=== PATIENT | female | born 2000 | race Caucasian/White ===

== ENCOUNTER 2019-02-02 16:56 | Inpatient (IN) ==
[2019-02-02] MEDS ORDERED: HUMULIN R IV ONE (17:52)
[2019-02-02] MEDS ORDERED: NS 1,000 ML IV ONE ×2 (17:52→19:46)
[2019-02-02 18:43] LABS: BILIRUBIN URINE NEGATIVE (NEGATIVE); BLOOD URINE LARGE (NEGATIVE); COLOR STRAW; GLUCOSE URINE >1000 mg/dL (NEGATIVE); KETONE URINE >150 mg/dL (NEGATIVE); LEUKOCYTES URINE NEGATIVE (NEGATIVE); NITRITE URINE NEGATIVE (NEGATIVE); PH URINE 5.5; PROTEIN URINE NEGATIVE (NEGATIVE); SP GRAVITY URINE 1.028; TURBIDITY URINE CLEAR (CLEAR); URINE SOURCE CLEAN CATCH; UROBILINOGEN URINE NORMAL (NORMAL)
[2019-02-02 18:44] LABS: BASO# 0.03 X1000 (0.0-0.2); BASO% 0.3 % (0.0-0.8); EOS# 0.03 X1000 (0.0-0.7); EOS% 0.3 % (0.0-10.0); HEMATOCRIT 47.8 % (37.0-47.0); HEMOGLOBIN 16.1 g/dL (12.0-16.0); IMM GRAN# 0.05 X1000 (0.0-0.04); IMM GRAN% 0.5 % (0.0-0.5); LYMPH# 1.26 X1000 (1.2-3.4); LYMPH% 11.8 % (20.5-51.1); MCH 30.1 PG (27-31); MCHC 33.7 g/dL (33-37); MCV 89.5 FL (81-99); MONO# 0.53 X1000 (0.11-0.59); NEUT# 8.79 X1000 (1.4-6.5); NEUT% 82.1 % (42.2-75.2); PLT 495 X1000 (130-400); RBC 5.34 XMIL (4.2-5.4); RDW 13.5 % (11.5-14.5); WBC 10.69 X1000 (4.8-10.8)
[2019-02-02 18:45] LABS: UR EPITHELIAL CELLS <10 /HPF (<10); URINE BACTERIA NEGATIVE /HPF; URINE RBC <10 /HPF (<10); URINE WBC <10 /HPF (<10)
--- NOTE | 2019-02-02 18:54 | PROVIDER DOCUMENTATION ---
This chart was entered by Breana Swain Scribe, acting as scribe for Talon Malave MD. HPI-General Adult - General Source: patient - History of Present Illness -Gen Adult Nature of Presenting Problems: Patient is a 18 year old female who presents with elevated blood sugar. Reports nausea and chest pain. History of diabetes. Denies vomiting. Location of Pain/Injury: reports: chest Pain Radiation: reports: no radiation Quality of Pain: reports: aching Severity: reports: mild Onset/Duration: reports: unsure Timing: reports: still present Context/Activities at Onset: reports: light activity Associated Symptoms: reports: nausea Similar Symptoms Previously?: Yes Recently seen or treated by another doctor?: Yes <Talon Malave - Last Filed: 02/02/19 18:54> <Cj Gillette - Last Filed: 02/02/19 21:50> - General Chief Complaint: High Blood Sugar Stated Complaint: BLOOD SUGAR HIGH Time Seen by Provider: 02/02/19 17:45 Allergies/Adverse Reactions: Patient Allergies Allergy/AdvReac Type Severity Reaction Status Date / Time No Known Allergies Allergy Verified 07/01/14 08:31 Home Medications: Home Medication List Medication Instructions Recorded Confirmed Last Taken Type Ondansetron HCl [Zofran] 4 mg PO Q6H 07/01/14 07/01/14 07/01/14 History Promethazine [Phenergan] 25 mg PO Q6H PRN PRN 07/01/14 07/01/14 07/01/14 History Review of Systems - Adult - REVIEW OF SYSTEMS - ADULT Constitutional: reports: no symptoms reported. denies: chills, fever, fatique Eyes: reports: no symptoms reported Ears, Nose, Mouth & Throat: reports: no symptoms reported Cardiovascular: reports: see HPI, chest pain. denies: irregular heart rate, palpitations Respiratory: reports: no symptoms reported Gastrointestinal: reports: see HPI, nausea. denies: abdominal pain, vomiting Genitourinary: reports: no symptoms reported Musculoskeletal: reports: no symptoms reported Integumentary: reports: no symptoms reported Neurological: reports: no symptoms reported Psychiatric: reports: no symptoms reported Endocrine: reports: no symptoms reported Hematologic/Lymphatic: reports: no symptoms reported Allergic/Immunologic: reports: no symptoms reported All Other Systems: Reviewed and Negative <Talon Malave - Last Filed: 02/02/19 18:54> Past History - Adult - PAST MEDICAL HISTORY-ADULT Review of Records: reports: Old Records Reviewed, Social history reviewed & non- contributory. Major Childhood Illnesses: reports: denies history Cardiovascular: reports: denies history Respiratory: reports: denies history Gastrointestinal: reports: denies history Obstetrical/Gynecological: reports: denies history Genitourinary: reports: denies history Musculoskeletal: reports: denies history Neurological: reports: denies history Endocrine/Immune: reports: Diabetes Other Conditions: reports: denies history - PRIOR SURGERIES/PROCEDURES Surgical/Procedure History: reports: none - PRIOR HOSPITALIZATIONS Prior Hospitalizations: reports: none - IMMUNIZATION STATUS Childhood Immunizations: UTD, See Nurse Assessment Flu Vaccine: See Nurse Assessment - FAMILY HISTORY Family History: diabetes - SOCIAL HISTORY Smoking: denies Substance Use: denies Living Situation: family <Talon Malave - Last Filed: 02/02/19 18:54> Physical Exam-General - PHYSICAL EXAM-ADULT Initial Vital Signs Reviewed: Yes - CONSTITUTIONAL General Appearance: alert, no apparent distress. negative: lethargic - HEAD, EARS, NOSE, MOUTH & THROAT HENMT: normocephalic/atraumatic, moist mucous membranes. negative: angioedema - RESPIRATORY Respiratory: chest non-tender, lungs clear, normal breath sounds. negative: crackles, wheezing - CARDIOVASCULAR Cardiovascular: normal peripheral pulses, regular rate, rhythm. negative: tachycardia - GASTROINTESTINAL (ABDOMEN) Abdominal Exam: normal bowel sounds, non tender, soft. negative: rebound - MUSCULOSKELETAL Extremity: non-tender, normal inspection. negative: deformity, erythema - SKIN Integumentary: normal color, normal turgor, warm/dry. negative: cyanosis, ecchymosis, jaundice - NEUROLOGIC Neurologic: grossly normal. negative: aphasia, facial droop - PSYCHIATRIC Psych/Mental Status: normal mood/affect, oriented x 3. negative: anxious <Talon Malave - Last Filed: 02/02/19 18:54> Progress - PLAN OF CARE/RESULTS Progress/Plan/Lab Results: Vital Signs - 8 hr 02/02/19 17:34 Temperature 98.8 F Pulse Rate 114 H Respiratory Rate 18 Blood Pressure 105/75 O2 Sat by Pulse Oximetry 98 <Talon Malave - Last Filed: 02/02/19 18:54> - PLAN OF CARE/RESULTS Progress/Plan/Lab Results: Vital Signs - 8 hr 02/02/19 17:34 02/02/19 17:43 02/02/19 17:45 Temperature 98.8 F Pulse Rate 114 H 108 H 109 H Respiratory Rate 18 24 22 Blood Pressure 105/75 158/137 O2 Sat by Pulse Oximetry 98 100 99 02/02/19 18:00 02/02/19 18:15 02/02/19 18:26 Temperature Pulse Rate 104 H 101 H 104 H Respiratory Rate 21 22 19 Blood Pressure 94/73 O2 Sat by Pulse Oximetry 100 100 100 02/02/19 18:30 02/02/19 18:45 02/02/19 19:00 Temperature Pulse Rate 117 H 107 H 132 H Respiratory Rate 27 H 24 29 H Blood Pressure O2 Sat by Pulse Oximetry 99 98 100 02/02/19 19:01 02/02/19 19:15 02/02/19 19:30 Temperature Pulse Rate 133 H 117 H 121 H Respiratory Rate 21 23 16 Blood Pressure 117/74 O2 Sat by Pulse Oximetry 100 99 99 02/02/19 19:45 02/02/19 20:00 02/02/19 20:01 Temperature Pulse Rate 111 H 111 H 105 H Respiratory Rate 18 24 23 Blood Pressure 115/76 O2 Sat by Pulse Oximetry 99 99 100 02/02/19 20:15 02/02/19 20:30 02/02/19 20:53 Temperature Pulse Rate 109 H 115 H 115 H Respiratory Rate 24 23 23 Blood Pressure 130/79 O2 Sat by Pulse Oximetry 100 100 99 02/02/19 21:00 02/02/19 21:01 Temperature Pulse Rate 113 H 108 H Respiratory Rate 29 H 22 Blood Pressure 111/84 O2 Sat by Pulse Oximetry 99 100 Laboratory Results - last 24 hr 02/02/19 02/02/19 02/02/19 18:03 18:03 18:18 WBC 10.69 RBC 5.34 Hgb 16.1 H Hct 47.8 H MCV 89.5 MCH 30.1 MCHC 33.7 RDW Std Deviation 13.5 Plt Count 495 H MPV 10.0 Immature Gran % (Auto) 0.5 Neut % (Auto) 82.1 H Lymph % (Auto) 11.8 L Vernon % (Auto) 5.0 Eos % (Auto) 0.3 Baso % (Auto) 0.3 Immature Gran # (Auto) 0.05 H Neut # (Auto) 8.79 H Lymph # (Auto) 1.26 Vernon # (Auto) 0.53 Eos # (Auto) 0.03 Baso # (Auto) 0.03 Specimen Type Sample Site pH pCO2 pO2 HCO3 Base Excess Oxyhemoglobin ABG O2 Sat (Calculated) ABG O2 Saturation ABG Carboxyhemoglobin ABG Methemoglobin Stef Test A-a O2 Difference Total Hemoglobin Lactate Blood Gas Modality FiO2 % Sodium 132 L Potassium 5.1 Chloride 87 L Carbon Dioxide 10 L Anion Gap 35 BUN 17 Creatinine 0.9 Estimated GFR/1.73 m2 > 60 BUN/Creatinine Ratio 19 Glucose 562 H* POC Glucose Calculated Osmolality 292 Calcium 9.3 Total Bilirubin 0.43 AST 20 ALT 19 Alkaline Phosphatase 135 H Total Protein 9.3 H Albumin 5.6 H Globulin 3.7 Albumin/Globulin Ratio 1.5 Urine Source CLEAN CATCH Urine Color STRAW Urine Turbidity CLEAR Urine pH 5.5 Ur Specific [place] 1.028 Urine Protein NEGATIVE Ur Glucose (Stick) >1000 A Ur Ketones (Stick) >150 Urine Blood LARGE A Urine Nitrite NEGATIVE Urine Bilirubin NEGATIVE Urobilinogen Dipstick NORMAL Urine Leukocytes NEGATIVE Urine WBC (Auto) <10 Urine RBC (Auto) <10 U Epithel Cells (Auto) <10 Urine Bacteria (Auto) NEGATIVE 02/02/19 02/02/19 19:01 21:30 WBC RBC Hgb Hct MCV MCH MCHC RDW Std Deviation Plt Count MPV Immature Gran % (Auto) Neut % (Auto) Lymph % (Auto) Vernon % (Auto) Eos % (Auto) Baso % (Auto) Immature Gran # (Auto) Neut # (Auto) Lymph # (Auto) Vernon # (Auto) Eos # (Auto) Baso # (Auto) Specimen Type ARTERIAL Sample Site R RADIAL pH 7.28 L pCO2 21 L pO2 116 H HCO3 13.4 L Base Excess -14.8 L Oxyhemoglobin 96.6 ABG O2 Sat (Calculated) 17.6 ABG O2 Saturation 99.5 ABG Carboxyhemoglobin 1.70 ABG Methemoglobin 1.2 Stef Test YES A-a O2 Difference 7.0 Total Hemoglobin 12.8 Lactate 1.00 Blood Gas Modality ROOM AIR FiO2 % 21.0 Sodium Potassium Chloride Carbon Dioxide Anion Gap BUN Creatinine Estimated GFR/1.73 m2 BUN/Creatinine Ratio Glucose POC Glucose 500 H Calculated Osmolality Calcium Total Bilirubin AST ALT Alkaline Phosphatase Total Protein Albumin Globulin Albumin/Globulin Ratio Urine Source Urine Color Urine Turbidity Urine pH Ur Specific [place] Urine Protein Ur Glucose (Stick) Ur Ketones (Stick) Urine Blood Urine Nitrite Urine Bilirubin Urobilinogen Dipstick Urine Leukocytes Urine WBC (Auto) Urine RBC (Auto) U Epithel Cells (Auto) Urine Bacteria (Auto) Orders Category Date Time Status ABG [RESP] Routine Lab 02/02/19 21:30 Completed ACETONE SERUM [CHEM] Stat Lab 02/02/19 21:15 Uncollected CBC WITH ELECTRONIC DIFF [HEME] Stat Lab 02/02/19 18:03 Completed CK PROFILE [SP CHEM] Stat Lab 02/02/19 21:15 Uncollected CK TOTAL [CHEM] Stat Lab 02/02/19 21:15 Uncollected CMP [COMPREHENSIVE METABOLIC PANEL] [CHEM] Stat Lab 02/02/19 18:18 Completed HCG [ TEST-SERUM] [PREG] Stat Lab 02/02/19 18:03 Received LACTATE, PLASMA [CHEM] Stat Lab 02/02/19 21:15 Uncollected MAGNESIUM [CHEM] Stat Lab 02/02/19 21:15 Uncollected PHOSPHORUS [CHEM] Stat Lab 02/02/19 21:15 Uncollected TROPONIN T Stat Lab 02/02/19 21:15 Uncollected URINALYSIS W/POSS RFLX CULT [URINALYSIS] Stat Lab 02/02/19 18:03 Completed URINE DRUG SCREEN Stat Lab 02/02/19 21:15 Uncollected 0.9% Sodium Chloride Inj [Ns] 1,000 ml Med 02/02/19 17:52 Discontinued IV 999 mls/hr 0.9% Sodium Chloride Inj [Ns] 1,000 ml Med 02/02/19 19:46 Discontinued IV 999 mls/hr 0.9% Sodium Chloride Inj [Ns] 100 ml Med 02/02/19 21:45 Active Insulin Human Regular [Humulin R] 100 unit IV Per Protocol mls/hr Insulin Human Regular [Humulin R] Med 02/02/19 19:46 Discontinued 10 unit SUBQ NOW ONE Insulin Human Regular [Humulin R] Med 02/02/19 17:52 Discontinued 20 unit IV NOW ONE Magnesium Sulfate 2 gm/S.w.i. Med 02/02/19 21:45 Active 2 gm in 50 ml IV PRN Potassium Chloride 10% Liquid Med 02/02/19 21:45 Active 20 meq PO PRN PRN Potassium Chloride 20 Meq/Swi Med 02/02/19 21:45 Active 20 meq in 100 ml IV PRN Potassium Chloride 20% Liquid Med 02/02/19 21:45 Active 40 meq PO PRN PRN Potassium Chloride 40 Meq/Swi Med 02/02/19 21:45 Active 40 meq in 100 ml IV PRN Sodium Bicarbonate 8.4% 100 meq Med 02/02/19 21:45 Active Water, Sterile Inj [Sterile Water Inj] 500 ml IV PRN Sodium Phosphate 30 mmol Med 02/02/19 21:45 Active Dextrose 5%-Water Inj [D5w] 250 ml IV PRN Pt signed out to me by Dr. Malave, pt found to be in DKA, insulin drip started, spoke with Dr. Jackson and will admit Result Diagrams: 02/02/19 18:03 02/02/19 18:18 <Cj Gillette - Last Filed: 02/02/19 21:50> Departure <Talon Malave - Last Filed: 02/02/19 18:54> - Departure Date of Disposition Decision: 02/02/19 Time of Disposition Decision: 21:49 Certified Medical Emergency: Emergent - Critical Care Note This patient required my direct & personal management of CC.: Yes Total Time (mins): 36 Critical Care Statement: This patient required my direct personal management to treat or rule out processes, the absence of which, could potentiallly result in sudden, clinically significant life or limb threatening deterioration. <Cj Gillette - Last Filed: 02/02/19 21:50> - Departure DIAGNOSIS: DKA (diabetic ketoacidoses) Qualifiers: Diabetes mellitus type: due to underlying condition Diabetes mellitus com plication detail: without coma Qualified Code(s): E08.10 - Diabetes mellitus due to underlying condition with ketoacidosis without coma Disposition: ADMITTED INPATIENT 09 Condition: Stable Referrals and Follow-Ups: None,PCP [Primary Care Provider] - Attestation - Physician/ [place] Attestation The physician spent face to face time with patient:: Yes Advanced Practice Provider documentation review:: Supervising physician onsite and consulted in the evaluation and care of this patient. The physician did have a face to face encounter with the patient. <Talon Malave - Last Filed: 02/02/19 18:54> - Physician/ [place] Attestation The physician spent face to face time with patient:: Yes Advanced Practice Provider documentation review:: Supervising physician onsite and consulted in the evaluation and care of this patient. The physician did have a face to face encounter with the patient. <Cj Gillette - Last Filed: 02/02/19 21:50> This chart was documented by the indicated scribe, (Breana Swain Scribe) and accurately reflects the services I performed and decisions made by me, Talon Malave MD, as attested by the provider's signature.
[2019-02-02 19:45] LABS: AGAP 35; ALB/GLOB RATIO 1.5; ALBUMIN 5.6 g/dL (3.5-5.0); ALKALINE PHOSPHATASE 135 U/L (32-104); BUN 17 mg/dL (8-22); CALCIUM 9.3 mg/dL (8.8-10.2); CHLORIDE 87 mmol/L (98-107); COSMO 292; CREATININE 0.9 mg/dL (0.5-0.9); ESTIMATED GFR > 60; GLUCOSE 562 mg/dL (70-104); GOT 20 U/L (10-30); GPT 19 U/L (10-36); POTASSIUM 5.1 mmol/L (3.5-5.1); SODIUM 132 mmol/L (136-145); TCO2 10 mmol/L (25-35); TOTAL BILIRUBIN 0.43 mg/dL (0.20-1.00); TOTAL PROTEIN 9.3 g/dL (6.3-8.3)
[2019-02-02] MEDS ORDERED: HUMULIN R SUBQ ONE (19:46)
[2019-02-02 21:40] LABS: ALLEN TEST YES; BE -14.8 mmoll (-3.0-3.0); BLOOD TYPE ARTERIAL; HCO3-(ACT) 13.4 mmoll (20.0-26.0); METHB 1.2 % (0.0-1.5); O2(CT) 17.6 mL/dL (15.0-23.0); O2HB 96.6 % (95.0-99.0); PCO2(98.6) 21 mmHg (35-45); PO2(98.6) 116 mmHg (60-100); SAMPLE BLOOD; SAO2 99.5 % (95.0-100.0); THB 12.8 g/dL (11.5-17.4); pH(98.6) 7.28 (7.35-7.45)
[2019-02-02 21:41] LABS: MODALITY ROOM AIR
[2019-02-02] MEDS ORDERED: SODIUM PHOSPHATE 30 MMOL in D5W 250 ML IV PRN (21:45)
[2019-02-02] MEDS ORDERED: POTASSIUM CHLORIDE 40 MEQ/SWI 40 MEQ/100 ML IVPB IV PRN (21:45)
[2019-02-02] MEDS ORDERED: SODIUM BICARBONATE 8.4% 100 MEQ in STERILE WATER INJ. 500 ML IV PRN (21:45)
[2019-02-02] MEDS ORDERED: POTASSIUM CHLORIDE 20% LIQUID PO PRN (21:45)
[2019-02-02] MEDS ORDERED: MAGNESIUM SULFATE 2 GM/S.W.I. 2 GM/50 ML IVPB IV PRN (21:45)
[2019-02-02] MEDS ORDERED: POTASSIUM CHLORIDE 20 MEQ/SWI 20 MEQ/100 ML IVPB IV PRN (21:45)
[2019-02-02] MEDS ORDERED: HUMULIN R 100 UNIT in NS 100 ML IV SCH (21:45)
[2019-02-02] MEDS ORDERED: D50W SYRINGE IV PRN (22:00)
[2019-02-02 22:58] LABS: UR AMPHETAMINES QUAL NONE DETECTED (NONE DETECT); UR BARBITUATES QUAL NONE DETECTED (NONE DETECT); UR BENZODIAZEPIN QUAL NONE DETECTED (NONE DETECT); UR CANNABINOIDS QUAL NONE DETECTED (NONE DETECT); UR COCAINE QUAL NONE DETECTED (NONE DETECT); UR METHADONE QUAL NONE DETECTED (NONE DETECT); UR OPIATES QUAL NONE DETECTED (NONE DETECT); UR OXYCODONE QUAL NONE DETECTED (NONE DETECT); UR PCP QUAL NONE DETECTED (NONE DETECT)
[2019-02-02 22:59] LABS: ACETONE SERUM MODERATE (NEGATIVE)
[2019-02-02 23:03] LABS: PHOSPHORUS 2.2 mg/dL (2.7-4.5)
[2019-02-02 23:05] LABS: CK PROFILE 44 U/L (24-173)
--- NOTE | 2019-02-03 00:01 | HISTORY AND PHYSICAL ---
REASON FOR ADMISSION: Weakness, polyuria, polydipsia of 1 day's duration. Ms. Tisha Bates is a 18-year-old woman with past medical history of type 1 diabetes who according to ER physician reports that she presented to the ER different places 3 times in the last 1 month. Patient reports that she was doing well up until early hours of this morning when she started complaining of feeling sick and weak. Denies any vomiting at that time but did vomit on arrival to the ER recently improved. No diarrhea, no abdominal pain. She then complains of vague chest pain with some slight shortness of breath. This has since resolved . She also complains of polyuria, polydipsia over the last 8 hours and feeling little lightheaded and weak. No bleeding from any orifice. No change in her medications although her fiance says that she does not check her blood sugar, for the last 2 weeks she has been engaging in dietary indiscretion. Reason why the patient also came in because she could not get her blood sugar to register anything other than high and this concerned her. REVIEW OF SYSTEMS: Patient reports leg swelling fiance also adds that she is having some mild facial swelling in the morning when she wakes up. Patient denies any change in her urinary habits. Otherwise 12 system review was done. Positive findings per HPI. ALLERGIES: No known allergies. HOME MEDICATIONS: Lantus and Humalog. FAMILY HISTORY: Father of colon cancer in his 30s and her grandmother also had colon cancer. SOCIAL HISTORY: Does not smoke, drink or use drugs. SURGICAL HISTORY: D and C. LABORATORY WORK: White count 10,000, hemoglobin and hematocrit 16 and 47, platelets 495,000, 82% neutrophils. Sodium is 132, BUN 17, creatinine 0.9, glucose 562, alkaline phosphatase 135, total protein is 95, albumin 5.6. negative, urinalysis greater than 1000 glucose, ketones greater 150, blood large, protein is negative, pH 7.28, pCO2 21, PO2 116, anion gap as above was 35, bicarb is 13, blood gas is done on room air. EXAMINATION: Slender young woman who is not in acute distress, A, O x3. Normal mood and affect. Head is normocephalic, atraumatic. Eyes, JAKOB, EOMI. She is anicteric not pale. ENT and oropharynx exam shows oral thrush line her cheek . No erythema or exudates no cyanosis.Neck: Supple. No JVD or carotid bruit, thyromegaly. No cervical lymph nodes. Chest: Clear on auscultated range both lung perez. Cardiovascular: first, second heart sounds heard. No gallops, murmurs or rubs. Rhythm is regular. Abdomen: Scaphoid, soft, nontender, no megaly, bowel sounds are normal. Rectal: Deferred at this time. Extremities: No edema, clubbing, peripheral cyanosis, good distal pulse volumes palpated regular symmetrical. Neurological: No focal deficits. Skin: Intact, good turgor. Musculoskeletal: Grossly normal. ASSESSMENT: 1. Diabetic ketoacidosis . 2. Dehydration. Patient admits to be poorly compliant with her medication and desires to be educated especially aspect of the correction factor patient says she is not counseled, she knows how to count her carbs but does not quite get the hang for correction factor is. For now once she get out of DKA will get welding equipment sales representative to see her and teach her how to count her carb and correction factor and slowly reintroduce home medications slight modifications. A1c was ordered. Her last A1c according to the patient was 9.2 few months ago. We see how this compares her most recent A1c. Patient is motivated about her poor compliance wants do better. The patient be transferred to [facility]. cc: Pool Jackson MD MTDXiao
[2019-02-03] MEDS ORDERED: ZOFRAN IV PRN (01:03)
[2019-02-03] MEDS ORDERED: D5 1/2 NS + KCL 10 MEQ 1,000 ML IV PRN ×2 (01:03→01:30)
[2019-02-03] MEDS ORDERED: TYLENOL PO PRN (01:03)
[2019-02-03] MEDS ORDERED: POTASSIUM CHLORIDE 10 MEQ in NS 1,000 ML IV SCH ×2 (01:03→01:30)
[2019-02-03 01:49] LABS: HEMOGLOBIN A1C 11.2 % (4.8-6.0)
[2019-02-03 02:07] LABS: AGAP 19; BUN 11 mg/dL (8-22); CHLORIDE 104 mmol/L (98-107); COSMO 277; CREATININE 0.6 mg/dL (0.5-0.9); ESTIMATED GFR > 60; GLUCOSE 170 mg/dL (70-104); LIPASE 36 U/L (13-60); MAGNESIUM 1.8 mg/dL (1.5-2.7); PHOSPHORUS 2.6 mg/dL (2.7-4.5); POTASSIUM 3.9 mmol/L (3.5-5.1); SODIUM 137 mmol/L (136-145); TCO2 14 mmol/L (25-35)
[2019-02-03] MEDS: D5 1/2 NS + KCL 10 MEQ 1,000 ML IV SCH ×2 (02:30→09:15)
[2019-02-03] MEDS: POTASSIUM CHLORIDE 10% LIQUID PO PRN ×2 (03:04→07:36)
[2019-02-03 05:29] LABS: AGAP 15; BUN 10 mg/dL (8-22); CALCIUM 7.8 mg/dL (8.8-10.2); CHLORIDE 108 mmol/L (98-107); COSMO 282; CREATININE 0.5 mg/dL (0.5-0.9); ESTIMATED GFR > 60; GLUCOSE 202 mg/dL (70-104); MAGNESIUM 1.8 mg/dL (1.5-2.7); PHOSPHORUS 2.9 mg/dL (2.7-4.5); SODIUM 139 mmol/L (136-145); TCO2 16 mmol/L (25-35)
--- NOTE | 2019-02-03 07:37 | Diag Imaging Result Doc PS360 ---
EXAM: CHEST-2 VIEWS 02/02/2019 HISTORY: cp TECHNIQUE: PA and lateral chest COMMENT: There is ill-defined opacity in the right lower lobe. There are no previous studies available for comparison. The heart size and pulmonary vascularity are within normal limits. IMPRESSION: Right lower lobe bronchopneumonia. Electronically signed by Pietro Riggs 02/03/2019 7:35 AM
[2019-02-03] MEDS: MYCOSTATIN SUSP PO SCH ×4 (09:35→20:52)
[2019-02-03] MEDS: MAXIPIME 1 GM in NS 50 ML IV SCH ×2 (09:36→20:54)
[2019-02-03 10:04] LABS: BASO# 0.05 X1000 (0.0-0.2); BASO% 0.9 % (0.0-0.8); EOS# 0.15 X1000 (0.0-0.7); EOS% 2.6 % (0.0-10.0); HEMATOCRIT 38.5 % (37.0-47.0); HEMOGLOBIN 13.1 g/dL (12.0-16.0); IMM GRAN# 0.02 X1000 (0.0-0.04); IMM GRAN% 0.3 % (0.0-0.5); LYMPH# 1.83 X1000 (1.2-3.4); LYMPH% 31.6 % (20.5-51.1); MCH 30.5 PG (27-31); MCV 89.5 FL (81-99); MONO# 0.53 X1000 (0.11-0.59); MONO% 9.2 % (1.7-9.3); MPV 9.4 FL (7.4-10.4); NEUT# 3.21 X1000 (1.4-6.5); NEUT% 55.4 % (42.2-75.2); PLT 359 X1000 (130-400); RDW 13.5 % (11.5-14.5); WBC 5.79 X1000 (4.8-10.8)
[2019-02-03 10:15] LABS: URINE SOURCE CLEAN CATCH
[2019-02-03 10:34] LABS: UR EPITHELIAL CELLS <10 /HPF (<10); URINE BACTERIA NEGATIVE /HPF; URINE RBC <10 /HPF (<10); URINE WBC <10 /HPF (<10)
[2019-02-03 10:39] LABS: CHLORIDE 106 mmol/L (98-107); POTASSIUM 4.3 mmol/L (3.5-5.1); SODIUM 139 mmol/L (136-145)
[2019-02-03 10:40] LABS: AGAP 16; BUN 8 mg/dL (8-22); CALCIUM 8.5 mg/dL (8.8-10.2); COSMO 282; CREATININE 0.5 mg/dL (0.5-0.9); ESTIMATED GFR > 60; GLUCOSE 201 mg/dL (70-104); MAGNESIUM 1.8 mg/dL (1.5-2.7); PHOSPHORUS 2.7 mg/dL (2.7-4.5); TCO2 17 mmol/L (25-35)
[2019-02-03 10:45] LABS: BILIRUBIN URINE NEGATIVE (NEGATIVE); BLOOD URINE TRACE (NEGATIVE); COLOR YELLOW; GLUCOSE URINE >1000 mg/dL (NEGATIVE); KETONE URINE 80 mg/dL (NEGATIVE); LEUKOCYTES URINE TRACE (NEGATIVE); NITRITE URINE NEGATIVE (NEGATIVE); PROTEIN URINE TRACE mg/dL (NEGATIVE); SP GRAVITY URINE 1.025; TURBIDITY URINE CLEAR (CLEAR); UROBILINOGEN URINE NORMAL (NORMAL)
[2019-02-03] MEDS ORDERED: LANTUS INSULIN SUBQ ONE (11:03)
[2019-02-03] MEDS ORDERED: HUMALOG SUBQ SCH ×3 (11:15→17:03)
[2019-02-03] MEDS: NS 1,000 ML IV SCH (13:50)
[2019-02-03] MEDS ORDERED: HUMULIN R SUBQ SCH (17:15)
--- NOTE | 2019-02-03 19:22 | PROGRESS NOTE ---
DATE: 02/03/2019 SUBJECTIVE: The patient is resting comfortably in bed. She has no complaints. OBJECTIVE: Vital Signs: Temperature 98.4 degrees, blood pressure 108/74, heart rate 92, respirations 18, O2 saturation is 99% on room air. General: This is a young female, sitting up in bed in no acute distress. Heart: S1, S2 normal, tachycardic. Lungs: Clear to auscultation bilaterally. Abdomen: Positive bowel sounds. Soft, nontender, nondistended. Extremities: No edema, no cyanosis. Neurologic: The patient is alert and oriented x4. LABORATORY DATA: Sodium 139, potassium 4.3, chloride 106, CO2 of 17, BUN 8, creatinine 0.5, glucose 201. ASSESSMENT AND PLAN: 1. Diabetic ketoacidosis. I will transition the patient to long-acting insulin and discontinue the insulin drip. The patient's hemoglobin A1c is 11.2 which indicates very poor control. This was discussed with the patient and her parents. The patient is followed by an sole layer hand in [place]. We will also start the patient on sliding scale insulin in addition to long-acting insulin and consult with the dietitian. 2. Right lower lobe pneumonia. We will continue with antibiotic therapy. We will likely transition this to oral antibiotic therapy prior to discharge. 3. Deep vein thrombosis prophylaxis. We will start the patient on Lovenox. cc: Cristela Mckeon MD
[2019-02-03] MEDS ORDERED: LOVENOX SUBQ SCH (20:00)
[2019-02-03] MEDS: HUMULIN R SUBQ SCH (20:54)
[2019-02-03] MEDS ORDERED: LANTUS INSULIN SUBQ SCH (21:00)
[2019-02-04] MEDS: HUMULIN R SUBQ SCH ×2 (00:40→03:45)
[2019-02-04] MEDS: NS 1,000 ML IV SCH (00:41)
[2019-02-04 06:01] LABS: HEMATOCRIT 35.8 % (37.0-47.0); HEMOGLOBIN 11.9 g/dL (12.0-16.0); MCH 30.5 PG (27-31); MCHC 33.2 g/dL (33-37); MCV 91.8 FL (81-99); MPV 9.3 FL (7.4-10.4); RBC 3.9 XMIL (4.2-5.4); RDW 13.3 % (11.5-14.5); WBC 4.68 X1000 (4.8-10.8)
[2019-02-04] MEDS ORDERED: HUMULIN R SUBQ SCH (07:00)
[2019-02-04 07:01] LABS: AGAP 10; BUN 9 mg/dL (8-22); CALCIUM 8.2 mg/dL (8.8-10.2); CHLORIDE 109 mmol/L (98-107); COSMO 288; CREATININE 0.4 mg/dL (0.5-0.9); ESTIMATED GFR > 60; GLUCOSE 118 mg/dL (70-104); PHOSPHORUS 3.7 mg/dL (2.7-4.5); POTASSIUM 3.3 mmol/L (3.5-5.1); SODIUM 145 mmol/L (136-145); TCO2 26 mmol/L (25-35)
[2019-02-04 07:11] VITALS: BP 105/52
--- NOTE | 2019-02-04 07:28 | Diag Imaging Result Doc PS360 ---
EXAM: CHEST-PORTABLE HISTORY: pneumonia TECHNIQUE: Portable chest single view COMPARISON: 02/02/2019 FINDINGS: The lungs are well expanded. The heart is not enlarged. The vessels are not distended. There are no infiltrates. No effusion identified. IMPRESSION: No pneumonia. Electronically signed by Can Mcneill 02/04/2019 7:26 AM
[2019-02-04] MEDS ORDERED: KLOR-CON PO ONE (07:41)
[2019-02-04] MEDS: MYCOSTATIN SUSP PO SCH (08:21)
[2019-02-04] MEDS: MAXIPIME 1 GM in NS 50 ML IV SCH (08:24)
[2019-02-04] MEDS ORDERED: LANTUS INSULIN SUBQ SCH ×3 (09:00)
== END 2019-02-04 09:31 | disposition home or self-care (01) | DRG 637 ==
LOC: ED 16:56 → SUATTDRO 22:37 → 2N 22:37
PROVIDERS: ATTEND Internal Medicine

== ENCOUNTER 2019-03-17 22:55 | Inpatient (IN) ==
[2019-03-17 23:29] LABS: URINE SOURCE CLEAN CATCH
[2019-03-17 23:33] LABS: BILIRUBIN URINE NEGATIVE (NEGATIVE); BLOOD URINE NEGATIVE (NEGATIVE); COLOR YELLOW; GLUCOSE URINE >1000 mg/dL (NEGATIVE); KETONE URINE >150 mg/dL (NEGATIVE); LEUKOCYTES URINE MODERATE (NEGATIVE); NITRITE URINE NEGATIVE (NEGATIVE); PH URINE 5.5; PROTEIN URINE 50 mg/dL (NEGATIVE); SP GRAVITY URINE 1.041; TURBIDITY URINE CLEAR (CLEAR); UR EPITHELIAL CELLS <10 /HPF (<10); URINE BACTERIA 1+ /HPF; URINE RBC <10 /HPF (<10); URINE WBC 20-40 /HPF (<10); UROBILINOGEN URINE NORMAL (NORMAL)
[2019-03-17] MEDS ORDERED: NS 1,000 ML IV ONE (23:52)
[2019-03-17] MEDS ORDERED: ZOFRAN IV ONE (23:52)
[2019-03-18 00:25] LABS: BASO# 0.04 X1000 (0.0-0.2); BASO% 0.5 % (0.0-0.8); EOS# 0.07 X1000 (0.0-0.7); EOS% 0.8 % (0.0-10.0); HEMATOCRIT 48.6 % (37.0-47.0); HEMOGLOBIN 16.4 g/dL (12.0-16.0); IMM GRAN# 0.04 X1000 (0.0-0.04); IMM GRAN% 0.5 % (0.0-0.5); LYMPH# 1.73 X1000 (1.2-3.4); LYMPH% 19.7 % (20.5-51.1); MCH 29.4 PG (27-31); MCHC 33.7 g/dL (33-37); MCV 87.3 FL (81-99); MONO# 0.54 X1000 (0.11-0.59); MONO% 6.1 % (1.7-9.3); MPV 9.2 FL (7.4-10.4); NEUT# 6.38 X1000 (1.4-6.5); NEUT% 72.4 % (42.2-75.2); PLT 474 X1000 (130-400); RBC 5.57 XMIL (4.2-5.4); RDW 14.9 % (11.5-14.5)
[2019-03-18] MEDS ORDERED: NS 1,000 ML IV ONE (00:57)
--- NOTE | 2019-03-18 00:57 | PROVIDER DOCUMENTATION ---
This chart was entered by Antony Quiroz Scribe, acting as scribe for Judith Burton MD. HPI-Abdominal Pain/GI Problem - General Chief Complaint: Nausea/Vomiting Stated Complaint: N/V DIABETIC Time Seen by Provider: 03/17/19 23:15 Source: patient Allergies/Adverse Reactions: Patient Allergies Allergy/AdvReac Type Severity Reaction Status Date / Time nitrofurantoin Allergy RASH Verified 03/17/19 23:23 [From Macrobid] Penicillins Allergy RASH Verified 03/17/19 23:23 Home Medications: Home Medication List Medication Instructions Recorded Confirmed Last Taken Type Insulin Aspart [Novolog] 100 unit SQ DIRECTED 02/03/19 03/17/19 02/19/19 History Insulin Glargine,Hum.rec.anlog 40 unit SQ QHS 02/03/19 03/17/19 02/18/19 History [Lantus Solostar] - History of Present Illness-ABD Nature of Presenting Problems: Pt is a 19 yof who presents to the ED with a CC of nausea and vomiting. Pt reports she has had her symptoms for two days. Pt reports taking 40 units of Lantus SQ at approximately 2100 tonight. Pt reports a hx of diabetes. Pt reports a hx of a DKA admission last month. Pt denies any abdominal pain, diarrhea, or a fever. Pain Radiation: reports: no radiation Quality of Pain: reports: none Severity in ED: reports: mild Onset/Duration: reports: 2 days ago Timing: reports: still present Exposure to sick contacts?: No Associated Symptoms: reports: nausea, vomiting Dark Stools Present?: reports: none noticed Rectal Bleeding: reports: none Rectal Pain: reports: none Emesis Description: reports: none Bruising or Bleeding Gums?: No Similar Symptoms Previously?: Yes Recently seen or treated by another doctor?: No Review of Systems - Adult - REVIEW OF SYSTEMS - ADULT Constitutional: reports: see HPI Eyes: reports: no symptoms reported Ears, Nose, Mouth & Throat: reports: no symptoms reported Cardiovascular: reports: no symptoms reported Respiratory: reports: no symptoms reported Gastrointestinal: reports: see HPI, nausea, vomiting Genitourinary: reports: no symptoms reported Musculoskeletal: reports: no symptoms reported Integumentary: reports: no symptoms reported Neurological: reports: no symptoms reported Psychiatric: reports: no symptoms reported Endocrine: reports: no symptoms reported Hematologic/Lymphatic: reports: no symptoms reported Allergic/Immunologic: reports: no symptoms reported All Other Systems: Reviewed and Negative Past History - Adult - PAST MEDICAL HISTORY-ADULT Review of Records: reports: Old Records Reviewed, Nursing Assessment Review, Medications Reviewed, Social history reviewed & non-contributory. Major Childhood Illnesses: reports: denies history Cardiovascular: reports: denies history Respiratory: reports: denies history Gastrointestinal: reports: denies history Obstetrical/Gynecological: reports: denies history Genitourinary: reports: denies history Musculoskeletal: reports: denies history Neurological: reports: denies history Psychiatric: reports: denies history Endocrine/Immune: reports: Diabetes Other Conditions: reports: denies history - PRIOR SURGERIES/PROCEDURES Surgical/Procedure History: reports: none - PRIOR HOSPITALIZATIONS Prior Hospitalizations: reports: none - IMMUNIZATION STATUS Childhood Immunizations: UTD, See Nurse Assessment Flu Vaccine: See Nurse Assessment - FAMILY HISTORY Family History: diabetes - SOCIAL HISTORY Smoking: denies, non-smoker Substance Use: alcohol Alcohol Use Frequency: occasionally Physical Exam-General - PHYSICAL EXAM-ADULT Initial Vital Signs Reviewed: Yes - CONSTITUTIONAL General Appearance: alert, no apparent distress - EYES Eyes: PERRL/EOMI, pink conjunctivae - HEAD, EARS, NOSE, MOUTH & THROAT HENMT: normocephalic/atraumatic - NECK Neck: non-tender, full range of motion - RESPIRATORY Respiratory: chest non-tender, lungs clear, normal breath sounds, no respiratory distress, no accessory muscle use - CARDIOVASCULAR Cardiovascular: normal peripheral pulses, no edema, tachycardia - GASTROINTESTINAL (ABDOMEN) Abdominal Exam: normal bowel sounds, non tender, soft. negative: distended - MUSCULOSKELETAL Back Exam: normal inspection, no CVA tenderness, no vertebral tenderness Extremity: normal range of motion, non-tender - SKIN Integumentary: normal color, warm/dry - NEUROLOGIC Neurologic: grossly normal, no motor/sensory deficits - PSYCHIATRIC Psych/Mental Status: normal mood/affect, normal thought content, normal thought process, oriented x 3 Progress - PLAN OF CARE/RESULTS Progress/Plan/Lab Results: Vital Signs - 8 hr 03/17/19 23:00 Temperature 97.9 F Pulse Rate 132 H Respiratory Rate 20 Blood Pressure 102/70 O2 Sat by Pulse Oximetry 96 Bedside Urine ED: Urine Bedside Start: 03/17/19 23:11 Freq: ORDERED Status: Active Protocol: Activity Type Activity Date Activity User E-Sign Co-Sign Detail Recorded Client Recorded Date Recorded By Document 03/17/19 23:12 [id number] 03/17/19 23:12 [id number] 03/17/19 23:12 Point of Care [Bedside Point of Care] -Lot # [id number] - Results Negative -Control Line Visible? Yes Orders Category Date Time Status ED: Urine Bedside ORDERED Care 03/17/19 23:11 Active UA NIMS W/REFLEX CULT [URINALYSIS] Stat Lab 03/17/19 23:12 Ordered Patient with very borderline labs for DKA. Her repeat BMP is showing that she still remains borderline. Patient is nontoxic appearing. Spoke to Dr Aly, electrical transmission engineer for hospitalist who accepted patient for admission. Wanted her on SSI low dose and IVF fluids and will place her on the floor. Further orders to be placed by their team. Result Diagrams: 03/17/19 23:30 03/18/19 02:38 Departure - Departure Date of Disposition Decision: 03/17/19 Time of Disposition Decision: 03:57 DIAGNOSIS: DKA (diabetic ketoacidoses) Disposition: ADMITTED INPATIENT 09 Certified Medical Emergency: Emergent Condition: Stable Additional Instructions: ED Follow Up Instructions: You have been treated by a care provider in the Emergency Department. These instructions are being provided to you so you can have an understanding of how to care for yourself upon discharge. Upon discharge from the Emergency Department, you are responsible for making arrangements for follow-up care by a physician of your choice. Take all prescribed medications as directed. Return to the Emergency Department immediately for any new or worsening symptoms. You may call the Physician Referral phone number at [phone] to obtain a list of Physicians who are taking new patients. Referrals and Follow-Ups: None,PCP [Primary Care Provider] - - Critical Care Note This patient required my direct & personal management of CC.: Yes Total Time (mins): 35 Critical Care Statement: This patient required my direct personal management to treat or rule out processes, the absence of which, could potentiallly result in sudden, clinically significant life or limb threatening deterioration. Attestation - Physician/ [place] Attestation Patient care was provided by Advanced Practice Provider:: No The physician spent face to face time with patient:: Yes Advanced Practice Provider documentation review:: Supervising physician onsite and consulted in the evaluation and care of this patient. The physician did have a face to face encounter with the patient. This chart was documented by the indicated scribe, (Antony Quiroz, Anirudhibkaran) and accurately reflects the services I performed and decisions made by me, Judith Burton MD, as attested by the provider's signature.
[2019-03-18 01:00] LABS: ESTIMATED GFR > 60
[2019-03-18 01:03] LABS: AGAP 24; ALB/GLOB RATIO 1.5; ALBUMIN 5.2 g/dL (3.5-5.0); ALKALINE PHOSPHATASE 120 U/L (32-104); BUN 13 mg/dL (8-22); CALCIUM 10.1 mg/dL (8.8-10.2); CHLORIDE 99 mmol/L (98-107); COSMO 285; GLUCOSE 303 mg/dL (70-104); GOT 13 U/L (10-30); GPT 14 U/L (10-36); LIPASE 60 U/L (13-60); POTASSIUM 3.3 mmol/L (3.5-5.1); SODIUM 137 mmol/L (136-145); TCO2 14 mmol/L (25-35); TOTAL BILIRUBIN 0.32 mg/dL (0.20-1.00); TOTAL PROTEIN 8.7 g/dL (6.3-8.3)
[2019-03-18] MEDS ORDERED: KLOR-CON PO ONE ×2 (01:51→03:56)
[2019-03-18 02:45] LABS: BLOOD TYPE VENOUS; HCO3-(ACT) 17.4 mmoll (22-27); PCO2(98.6) 36 mmHg (40-60); PO2(98.6) 43 mmHg (30-55); SAMPLE BLOOD; SAO2 80.8 % (40.0-85.0)
[2019-03-18 02:47] LABS: pH(98.6) 7.28 (7.32-7.43)
[2019-03-18 03:09] LABS: AGAP 16; BUN 12 mg/dL (8-22); CALCIUM 7.9 mg/dL (8.8-10.2); CHLORIDE 108 mmol/L (98-107); COSMO 282; CREATININE 0.6 mg/dL (0.5-0.9); ESTIMATED GFR > 60; GLUCOSE 152 mg/dL (70-104); POTASSIUM 3.3 mmol/L (3.5-5.1); SODIUM 140 mmol/L (136-145); TCO2 16 mmol/L (25-35)
[2019-03-18] MEDS ORDERED: NS + KCL 40 MEQ 1,000 ML IV ONE (03:53)
[2019-03-18] MEDS ORDERED: HUMULIN R SUBQ ONE (03:56)
[2019-03-18] MEDS ORDERED: ZOFRAN IV PRN (03:57)
[2019-03-18 04:55] LABS: HEMOGLOBIN A1C 10.6 % (4.8-6.0)
[2019-03-18] MEDS: HUMALOG SUBQ SCH ×7 (07:47→20:29)
[2019-03-18] MEDS ORDERED: TYLENOL PO PRN (07:47)
[2019-03-18 09:54] LABS: AGAP 14; BUN 12 mg/dL (8-22); CALCIUM 7.8 mg/dL (8.8-10.2); CHLORIDE 112 mmol/L (98-107); COSMO 284; CREATININE 0.7 mg/dL (0.5-0.9); ESTIMATED GFR > 60; GLUCOSE 153 mg/dL (70-104); MAGNESIUM 1.8 mg/dL (1.5-2.7); POTASSIUM 4.8 mmol/L (3.5-5.1); SODIUM 141 mmol/L (136-145); TCO2 15 mmol/L (25-35)
[2019-03-18 17:42] LABS: AGAP 16; BUN 11 mg/dL (8-22); CALCIUM 7.8 mg/dL (8.8-10.2); CHLORIDE 103 mmol/L (98-107); COSMO 284; CREATININE 0.9 mg/dL (0.5-0.9); ESTIMATED GFR > 60; GLUCOSE 323 mg/dL (70-104); POTASSIUM 4.4 mmol/L (3.5-5.1); SODIUM 136 mmol/L (136-145); TCO2 17 mmol/L (25-35)
[2019-03-18 19:56] LABS: AGAP 14; BUN 14 mg/dL (8-22); CALCIUM 7.9 mg/dL (8.8-10.2); CHLORIDE 105 mmol/L (98-107); COSMO 281; ESTIMATED GFR > 60; GLUCOSE 244 mg/dL (70-104); POTASSIUM 5.4 mmol/L (3.5-5.1); SODIUM 136 mmol/L (136-145); TCO2 17 mmol/L (25-35)
[2019-03-18] MEDS ORDERED: ROCEPHIN 1 GM in NS 50 ML IV SCH (20:00)
--- NOTE | 2019-03-18 20:25 | HISTORY AND PHYSICAL ---
CHIEF COMPLAINT: Nausea and vomiting. HISTORY OF PRESENT ILLNESS: This is a 19-year-old female who presents to the emergency room after nausea and vomiting for the past two days. She has diabetes mellitus type 1. She was recently admitted for DKA just this last month. She denies any type of abdominal pain, diarrhea, or fever. Initial workup in the emergency room shows the patient to be in very early DKA as well as mildly tachycardic. She will be given fluids and admitted to the medical floor with sliding scale insulin. Continue fluid hydration. REVIEW OF SYSTEMS: Fourteen point review of systems conducted with the patient. She had polyuria and polydipsia. She denied any other changes. Other pertinent positives listed above in the HPI. ALLERGIES: No known drug allergies. HOME MEDICATIONS: Lantus and Humalog. FAMILY HISTORY: Father of colon cancer in his 30s. Grandmother also had colon cancer. SOCIAL HISTORY: No tobacco, alcohol, or illicit drugs. SURGICAL HISTORY: D and C. PHYSICAL EXAMINATION: VITAL SIGNS: Temperature 97.9 degrees, pulse 96, respirations 20, blood pressure 104/69, oxygen saturation 99% on room air. GENERAL: A pleasant young female, alert and oriented x3, lying on the ER stretcher in no acute distress. HEENT: Head is atraumatic, normocephalic. Pupils equal, round and reactive to light. Extraocular eye movements intact. Sclerae are anicteric. Conjunctiva is pink. Oral mucosa is dry. NECK: Supple. No JVD. No thyromegaly. Trachea is midline. No cervical lymphadenopathy. CARDIAC: S1, S2 appreciated. Mildly tachycardic. No murmurs, gallops or rubs. LUNGS: Clear to auscultation bilaterally. No rhonchi, wheezes or rales. ABDOMEN: Soft, nondistended, nontender. Bowel sounds present in all four quadrants. Normoactive. No pulsatile mass. No organomegaly. EXTREMITIES: No clubbing, cyanosis or edema. 2+ pedal pulses bilaterally. GENITOURINARY: No bladder distention. Patient voids. Otherwise deferred. NEUROLOGICAL: Alert and oriented x3. No focal motor deficits. Otherwise nonfocal examination. LABORATORY DATA: WBC 8.80. Hemoglobin 16.4. Hematocrit 48.6. Platelet count 474,000. Sodium 137, potassium 3.3, chloride 99, carbon dioxide 14, BUN 13, creatinine 1, glucose 303. Urinalysis with greater than 1000 glucose; greater than 150 ketones; acetone level is small. ASSESSMENT AND PLAN: 1. Diabetic ketoacidosis. 2. Fluid volume depletion. 3. Mild urinary tract infection. PLAN: Place the patient on the medical floor. Continue fluid rehydration. Sliding scale insulin q four hours with fingerstick blood sugars. Monitor chemistry panel for anion gap to close. Will start clear diabetic liquids. She can progress as tolerated. Will give Rocephin 1 gram IV q 24 hours for urinary tract infection. Further recommendations per patient's clinical course. Dictated by JOHN Gonzalez for Dusty Aly MD cc: JOHN Gonzalez MD
[2019-03-18] MEDS ORDERED: LANTUS INSULIN SUBQ SCH (21:00)
[2019-03-19] MEDS: HUMALOG SUBQ SCH ×4 (00:02→12:27)
[2019-03-19 07:31] LABS: BASO# 0.04 X1000 (0.0-0.2); BASO% 0.7 % (0.0-0.8); EOS# 0.34 X1000 (0.0-0.7); EOS% 6.4 % (0.0-10.0); HEMATOCRIT 37.6 % (37.0-47.0); HEMOGLOBIN 12.4 g/dL (12.0-16.0); IMM GRAN# 0.02 X1000 (0.0-0.04); IMM GRAN% 0.4 % (0.0-0.5); LYMPH# 2.09 X1000 (1.2-3.4); LYMPH% 39.1 % (20.5-51.1); MCH 29.6 PG (27-31); MCV 89.7 FL (81-99); MONO# 0.53 X1000 (0.11-0.59); MONO% 9.9 % (1.7-9.3); MPV 8.7 FL (7.4-10.4); NEUT# 2.33 X1000 (1.4-6.5); NEUT% 43.5 % (42.2-75.2); PLT 294 X1000 (130-400); RBC 4.19 XMIL (4.2-5.4); RDW 14.6 % (11.5-14.5); WBC 5.35 X1000 (4.8-10.8)
[2019-03-19 07:56] VITALS: BP 90/52
[2019-03-19 08:22] LABS: AGAP 10; ALBUMIN 3.6 g/dL (3.5-5.0); BUN 10 mg/dL (8-22); CALCIUM 8.4 mg/dL (8.8-10.2); CHLORIDE 106 mmol/L (98-107); COSMO 283; CREATININE 0.6 mg/dL (0.5-0.9); ESTIMATED GFR > 60; GLUCOSE 177 mg/dL (70-104); PHOSPHORUS 3.5 mg/dL (2.7-4.5); POTASSIUM 3.7 mmol/L (3.5-5.1); SODIUM 140 mmol/L (136-145); TCO2 24 mmol/L (25-35)
--- NOTE | 2019-03-19 22:03 | DISCHARGE SUMMARY ---
ADMISSION DATE: 03/18/2019 DISCHARGE DATE: 03/19/2019 DISCHARGE DIAGNOSES: 1. Mild diabetic ketoacidosis, resolved. 2. Fluid volume depletion. HOSPITAL COURSE: This is a 19-year-old female who presented to the emergency department with intractable nausea and vomiting. She has diabetes mellitus type 1, and the labs showed mild DKA. The decision was made to just treat this patient with sliding scale insulin and monitor BMP every 4 hours. Slowly this patient was getting better, able to eat. We checked labs on the day of discharge, and there was no anion gap open and her bicarbonate was almost back to normal, so the decision was made to send this patient home. DISCHARGE PHYSICAL EXAMINATION: Vital signs: Temperature 98 degrees, heart rate 71, respiratory rate 18, blood pressure 95/56, O2 saturation 99% on room air. On general examination, this is a 19-year-old female lying in bed, in no acute distress. Cardiovascular: S1, S2 heard. No murmurs, gallops or rubs. Regular rate and rhythm. Respiratory exam: Clear bilaterally to auscultation. No work of breathing or using accessory muscles. Abdomen is soft, nontender to palpation. Bowel sounds present. No organomegaly. Extremities: No clubbing, cyanosis or edema. Peripheral pulses present in both legs. Neurological: The patient is alert and oriented x3. Moves all 4 extremities. DISCHARGE DISPOSITION: Home to self-care. DISCHARGE MEDICATIONS: We are not making any changes to her current medications. FOLLOWUP: Primary care physician in 1-2 weeks. cc: Rene Grover MD
== END 2019-03-19 12:52 | disposition home or self-care (01) | DRG 638 ==
LOC: ED 22:55 → 3N 03-18 07:28 → SUATTDRO 03-18 07:28
PROVIDERS: ATTEND Internal Medicine